=== PATIENT | female | born 1950 | race Caucasian/White ===

== ENCOUNTER → 2016-12-16 | Outpatient (CLI) | payer BC ==
[2016-12-16 10:13] LABS: Basophils # (A) 0.1 k/uL (0-0.2); Basophils % (A) 1 %; CH 29.8; CHCM 32.3; Eosinophils # (A) 0.2 k/uL (0-0.7); Eosinophils % (A) 2 %; HCT 41.7 % (34.0-46.0); HDW 2.24; HGB 13.7 gm/dL (11.4-16.0); Luc # (Auto) 0.16; Luc % (Auto) 3; Lymphocytes # (A) 1.4 k/uL (1.0-4.8); Lymphocytes % (A) 22 %; MCH 30.4 pg (25.0-35.0); MCHC 32.8 g/dL (31.0-37.0); MCV 92.6 fL (80.0-100.0); Mean Platelet Volume 7.6; Monocytes # (A) 0.4 k/uL (0-1.0); Monocytes % (A) 6 %; Neutrophils # (A) 4.2 k/uL (1.3-7.7); Neutrophils % (A) 66 %; RDW 13.2 % (11.5-15.5); WBC 6.4 k/uL (3.8-10.6); WBC (Perox) 6.43
[2016-12-16 10:41] LABS: ALT 37 U/L (9-52); AST 21 U/L (14-36); Alkaline Phosphatase 60 U/L (38-126); Anion Gap 9 mmol/L; Bilirubin, Delta 0.1 mg/dL (0.0-0.2); Blood Urea Nitrogen 14 mg/dL (7-17); Carbon Dioxide 28 mmol/L (22-30); Chloride 99 mmol/L (98-107); Cholesterol 171 mg/dL (<200); Glucose 84 mg/dL (74-99); HDL Cholesterol 64 mg/dL (40-60); Non-African American GFR(MDRD) >60 (>60 ml/min/1.73 sqM); Potassium 3.9 mmol/L (3.5-5.1); Sodium 136 mmol/L (137-145); Total Bilirubin 0.5 mg/dL (0.2-1.3); Total Protein 6.4 g/dL (6.3-8.2)
[2016-12-16 13:52] LABS: Hemoglobin A1C 5.5 % (4.2-6.1)
== END | disposition home or self-care (01) ==
LOC: LABWHC1 09:23
PROVIDERS: ATTEND Internal Medicine
DX: E03.9 Hypothyroidism, unspecified (principal); N95.1 Menopausal and female climacteric states; R73.09 Other abnormal glucose; E55.9 Vitamin D deficiency, unspecified; R63.5 Abnormal weight gain; R53.83 Other fatigue
CPT/HCPCS: 36415; 80051; 80061; 80076; 82306; 82565; 82947; 83036; 83525; 84520; 85025

== ENCOUNTER → 2017-01-25 | Outpatient (CLI) | payer BC | END | disposition home or self-care (01) | LOC: LABWHC1 14:45 | PROVIDERS: ATTEND Internal Medicine | DX: N95.1 Menopausal and female climacteric states (principal) | CPT/HCPCS: 36415; 84140 ==

== ENCOUNTER → 2017-03-06 | Outpatient (CLI) | payer BC | END | disposition home or self-care (01) | LOC: LABWHC1 15:40 | PROVIDERS: ATTEND Internal Medicine | DX: N95.1 Menopausal and female climacteric states (principal) | CPT/HCPCS: 36415; 84140 ==

== ENCOUNTER → 2018-01-18 | Outpatient (CLI) | payer BC ==
--- NOTE | 2018-01-21 12:19 | MM ---
Reason for exam: screening (asymptomatic). Last mammogram was performed 1 year and 1 month ago. History: Patient is postmenopausal. Family history of breast cancer in maternal cousin at age 30. Benign stereotactic core biopsy of the left breast, July 30, 2001. Excisional biopsy of the left breast. Took estrogen for 15 years beginning at age 47. Took progesterone for 15 years beginning at age 47. Physical Findings: A clinical breast exam by your physician is recommended on an annual basis and results should be correlated with mammographic findings. MG 3D Screening Mammo W/Cad Bilateral CC and MLO view(s) were taken. Prior study comparison: January 01, 2017, bilateral MG 3d screening mammo w/cad. December 13, 2015, bilateral MG diagnostic mammo w CAD [facility]. There are scattered fibroglandular densities. Previous mammotome biopsy in the left breast. There is chronic nodularity in the right breast. No significant changes when compared with prior studies. ASSESSMENT: Benign, BI-RAD 2 RECOMMENDATION: Routine screening mammogram of both breasts in 1 year.
== END | disposition home or self-care (01) ==
LOC: RADMAMWWP 01-14 16:09
PROVIDERS: ATTEND Internal Medicine Geriatric Medicine
DX: Z12.31 Encounter for screening mammogram for malignant neoplasm of breast (principal)
CPT/HCPCS: 77063; 77067

== ENCOUNTER → 2018-02-21 | Outpatient (CLI) | payer BC ==
--- NOTE | 2018-02-22 08:45 | BD ---
EXAMINATION TYPE: Axial Bone Density DATE OF EXAM: 02/21/2018 CLINICAL HISTORY: 59-year-old female osteoporosis without current pathologic fracture Height: 66 inches Weight: 207 FRAX RISK QUESTIONS: Alcohol (3 or more units per day): no Family History (Parent hip fracture): no Glucocorticoids (More than 3mos): not now,about 6 years ago (Ex: prednisone, prednisolone, methylprednisolone, dexamethasone, and hydrocortisone). History of Fracture in Adulthood: yes, ankle about 1987 Secondary Osteoporosis: 1. Type 1 Diabetes: no 2. Hyperthyroidism: no 3. Menopause before 45: no 4. Malnutrition: no 5. Chronic liver disease: no Rheumatoid Arthritis: no Current Tobacco Use: no RISK FACTORS HISTORY OF: Family History of Osteoporosis: yes Active: yes Diet low in dairy products/other sources of calcium: yes, dairy sensitive Postmenopausal woman: yes Take estrogen and/or progesterone medications: not now How long: about 15 years Lost more than 2 inches in height since high school: yes Frequent falls: no Poor Health: somewhat Hyperparathyroidism: no Adrenal Insufficiency: yes MEDICATIONS: Prednisone or other steroids: not now How Long: ...not regularly for at least 6 years Thyroid Medications: yes Which medication: Levothyroxine & Armor How Long: since about age 49 Osteoporosis Medications: no Additional Medications: calcium, D3, blood pressure meds Additional History: MS & fibromyalgia, old back injuries (no fractures that patient is aware of) EXAM MEASUREMENTS: Bone mineral densitometry was performed using the [employer] System. Bone mineral density as measured about the Lumbar spine is: ----- L1-L4(G/cm2): 1.437 T Score Values are as follows: ----- L2: 1.2 ----- L3: 2.6 ----- L4: 2.3 ----- L1-L4: 2.1 Bone mineral density has: Decreased -3.6% since study of: 12/11/2011 Bone mineral density about the R hip (g/cm2): 0.994 Bone mineral density about the L hip (g/cm2): 0.984 T Score values are as follows: -----R Neck: -0.3 -----L Neck: -0.4 -----R Total: 0.3 -----L Total: 0.2 Bone mineral density has: Decreased -3.3% since study of: 12/11/2011 IMPRESSION: Normal (Values between +1 and -1 indicate normal bone mass). Consider repeating this study in 5 year s or sooner if there is some new clinical indication. NOTE: T-SCORE=SD OF THE YOUNG ADULT MEAN.
== END | disposition home or self-care (01) ==
LOC: RADBDWWP 10:20
PROVIDERS: ATTEND Internal Medicine Geriatric Medicine
DX: M81.0 Age-related osteoporosis without current pathological fracture (principal)
CPT/HCPCS: 77080

== ENCOUNTER → 2018-11-08 | Outpatient (CLI) | payer BC | END | disposition home or self-care (01) | LOC: LABWHC1 15:38 | PROVIDERS: ATTEND Internal Medicine | DX: E03.9 Hypothyroidism, unspecified (principal) | CPT/HCPCS: 36415; 84439; 84443; 84481 ==

== ENCOUNTER → 2019-01-10 | Outpatient (CLI) | payer BC ==
--- NOTE | 2019-01-13 08:15 | MM ---
Reason for exam: screening (asymptomatic). Last mammogram was performed 1 year ago. History: Patient is postmenopausal. Family history of breast cancer in maternal cousin at age 30. Benign stereotactic core biopsy of the left breast, July 30, 2001. Excisional biopsy of the left breast. Took estrogen for 15 years beginning at age 47. Took progesterone for 15 years beginning at age 47. Physical Findings: A clinical breast exam by your physician is recommended on an annual basis and results should be correlated with mammographic findings. MG 3D Screening Mammo W/Cad Bilateral CC and MLO view(s) were taken. Prior study comparison: January 18, 2018, bilateral MG 3d screening mammo w/cad. January 01, 2017, bilateral MG 3d screening mammo w/cad. There are scattered fibroglandular densities. Previous mammotome biopsy in the left breast. There is chronic nodularity in the right breast. No significant changes when compared with prior studies. ASSESSMENT: Benign, BI-RAD 2 RECOMMENDATION: Routine screening mammogram of both breasts in 1 year.
== END | disposition home or self-care (01) ==
LOC: RADMAMWWP 08:22
PROVIDERS: ATTEND Internal Medicine Geriatric Medicine
DX: Z12.31 Encounter for screening mammogram for malignant neoplasm of breast (principal)
CPT/HCPCS: 77063; 77067

== ENCOUNTER → 2019-04-03 | Outpatient (CLI) | payer BC ==
--- NOTE | 2019-04-03 09:21 | US ---
EXAMINATION TYPE: US thyroid st tissue head/neck DATE OF EXAM: 04/03/2019 COMPARISON: NONE CLINICAL HISTORY: K11.8 Right Parotid Nodule. TECHNIQUE/FINDINGS: Targeted ultrasound was performed of the patient's palpable abnormality in graysc josiah and color. The contralateral parotid gland was also imaged for comparison. At patient palpable in right parotid there is a probable cyst measuring 0.8 x 0.9 x 0.8cm. Subcentimeter lymph nodes also noted bilaterally. All of these are avascular and anechoic with increased through transmission. IMPRESSION: Bilateral cystic parotid gland lesions. Differential includes Warthin's tumor, Sjogren syndrome, slig ht calyceal, or lymphoepithelial neoplasm.
== END | disposition home or self-care (01) ==
LOC: RADUSWWP 06:56
PROVIDERS: ATTEND Otolaryngology
DX: K11.6 Mucocele of salivary gland (principal)
CPT/HCPCS: 76536

== ENCOUNTER 2019-04-28 09:55 | Day surgery (SDC) | payer BC ==
[2019-04-28 11:50] VITALS: RESP 18; TEMP 98.3
[2019-04-28 11:51] VITALS: BP 124/70; PULSE 78
--- NOTE | 2019-04-28 13:03 | US ---
ULTRASOUND GUIDED FNA AND CORE BIOPSY RIGHT PAROTID MASS: CLINICAL HISTORY: Right parotid mass FINDINGS: The procedure was explained to the patient. The risks, complications, benefits and alternatives were discussed and any questions were answered. Informed consent was obtained. Patient was placed supin e on the ultrasound table and prepped and draped in the usual sterile fashion. Utilizing a 25 gauge needle, 2 FNA passes and 2 core biopsies were made into the requested mass. Patient was stable throughout the procedure. Pathology is pending. All elements of maximal barrier technique were utilized. IMPRESSION: 1. Successful ultrasound guided FNA and core biopsy right parotid mass.
== END 2019-04-28 11:45 | disposition home or self-care (01) ==
LOC: RADPROMAIN 09:55
PROVIDERS: ATTEND Otolaryngology
DX: D49.0 Neoplasm of unspecified behavior of digestive system (principal); I10 Essential (primary) hypertension; G35 Multiple sclerosis; F32.9 Major depressive disorder, single episode, unspecified; M79.7 Fibromyalgia; E03.9 Hypothyroidism, unspecified; E66.9 Obesity, unspecified; M19.90 Unspecified osteoarthritis, unspecified site; L71.9 Rosacea, unspecified; E07.9 Disorder of thyroid, unspecified; Z79.890 Hormone replacement therapy; Z79.899 Other long term (current) drug therapy; Z68.32 Body mass index [BMI] 32.0-32.9, adult; Z98.890 Other specified postprocedural states; Z98.49 Cataract extraction status, unspecified eye; Z91.040 Latex allergy status; Z91.011 Allergy to milk products; Z88.8 Allergy status to other drugs, medicaments and biological substances; Z91.018 Allergy to other foods; Z88.1 Allergy status to other antibiotic agents; Z82.49 Family history of ischemic heart disease and other diseases of the circulatory system; Z80.0 Family history of malignant neoplasm of digestive organs; Z82.69 Family history of other diseases of the musculoskeletal system and connective tissue; Z81.8 Family history of other mental and behavioral disorders; Z82.61 Family history of arthritis; Z81.1 Family history of alcohol abuse and dependence; Z83.42 Family history of familial hypercholesterolemia; Z83.79 Family history of other diseases of the digestive system; Z87.891 Personal history of nicotine dependence
CPT/HCPCS: 10005; 42400; 76942; 88173; 88305

== ENCOUNTER → 2019-09-01 | Outpatient (CLI) | payer BC | END | disposition home or self-care (01) | LOC: LABWHC1 13:16 | PROVIDERS: ATTEND Internal Medicine | DX: E03.9 Hypothyroidism, unspecified (principal); N95.1 Menopausal and female climacteric states; E55.9 Vitamin D deficiency, unspecified | CPT/HCPCS: 36415; 82306; 83735; 84140 ==

== ENCOUNTER → 2020-01-12 | Outpatient (CLI) | payer BC ==
--- NOTE | 2020-01-13 11:51 | MM ---
Reason for exam: clinical finding. Last mammogram was performed 1 year ago. History: Patient is postmenopausal. Family history of breast cancer in maternal cousin at age 30. Benign stereotactic core biopsy of the left breast, July 30, 2001. Excisional biopsy of the left breast. Taking estrogen for 15 years beginning at age 47. Taking progesterone for 15 years beginning at age 47. Taking other hormone. Physical Findings: Nurse did not find any significant physical abnormalities on exam. MG 3D Diag Mammo W/Cad [facility] Bilateral CC and MLO view(s) were taken. Prior study comparison: January 10, 2019, bilateral MG 3d screening mammo w/cad. January 18, 2018, bilateral MG 3d screening mammo w/cad. There are scattered fibroglandular densities. Previous mammotome biopsy in the left breast. These results were verbally communicated with the patient and result sheet given to the patient on 01/12/20. ASSESSMENT: Benign, BI-RAD 2 RECOMMENDATION: Routine screening mammogram of both breasts in 1 year. Manage on a clinical basis with regard to right breast pain.
== END | disposition home or self-care (01) ==
LOC: RADMAMWWP 13:33
PROVIDERS: ATTEND Internal Medicine Geriatric Medicine
DX: N64.4 Mastodynia (principal)
CPT/HCPCS: 77062; 77066

== ENCOUNTER 2022-01-10 05:49 | Emergency (ER) | payer BC ==
--- NOTE | 2022-01-10 06:51 | XR ---
EXAMINATION TYPE: XR humerus LT DATE OF EXAM: 01/10/2022 COMPARISON: NONE HISTORY: Fall. Pain TECHNIQUE: 2 views FINDINGS: I see no fracture nor dislocation. Glenohumeral joint is intact. No pathologic calcificatio n. IMPRESSION: Negative left humerus exam. No fracture.
--- NOTE | 2022-01-10 07:58 | ED ---
Upper Extremity HPI - General Chief Complaint: Extremity Injury, Upper Stated Complaint: Fall, LT shoulder injury Time Seen by Provider: 01/10/22 07:29 Source: patient, RN notes reviewed Mode of arrival: ambulatory Limitations: no limitations - History of Present Illness Initial Comments: This is a 71-year-old female who presents to the emergency department for left arm pain. States that she was walking on the sidewalk yesterday when she slipped and fell on wet leaves. She landed on her left arm. Pain is primarily in the left shoulder and upper arm. She is able to move it, but states that it is very painful. She took 800 mg of ibuprofen, however she is not sure if this was effective. She is requesting an MRI, but states that she is able to get an appointment with Dr. Muñoz, her PCP, this afternoon and Dr. Miranda, orthopedics, in 2 days. She did not hit her head and denies any loss of consciousness. Denies any fevers, chills, sore throat, cough, dyspnea, chest pain, palpitations, abdominal pain, nausea, vomiting, diarrhea, back pain, or headaches. MD Complaint: Injury to:: left, shoulder, arm Onset/Timin -: days(s) Context: fall Treatments Prior to Arrival: NSAIDS - Related Data Home Medications Medication Instructions Recorded Confirmed ALPRAZolam [Xanax] 0.25 mg PO DAILY PRN 04/15/19 04/28/19 Fluticasone Propionate [Flovent 50 mcg INHALATION DAILY 04/15/19 04/28/19 Diskus] Levothyroxine Sodium 150 mcg PO DAILY 04/15/19 04/28/19 Potassium Chloride [Klor-Con 20] 20 meq PO DAILY 04/15/19 04/28/19 Prasterone (Dhea) [Dhea] 25 mg PO DAILY 04/15/19 04/28/19 Thyroid,Pork [[place] Thyroid] 15 mg PO DAILY 04/15/19 04/28/19 Thyroid,Pork [[place] Thyroid] 60 mg PO DAILY 04/15/19 04/28/19 buPROPion HCL [buPROPion HCL SR] 150 mg PO DAILY 04/15/19 04/28/19 hydroCHLOROthiazide [Hydrodiuril] 25 mg PO BID 04/15/19 04/28/19 lisinopriL [Prinivil] 5 mg PO DAILY 04/15/19 04/28/19 Previous Rx's Medication Instructions Recorded Ibuprofen [Motrin] 800 mg PO Q8H PRN #20 tab 01/10/22 Ketorolac [Toradol] 10 mg PO Q6HR PRN #12 tab 01/10/22 Lidocaine 5% Patch [Lidoderm] 1 each TP DIRECTED PRN #30 patch 01/10/22 Allergies Allergy/AdvReac Type Severity Reaction Status Date / Time latex Allergy Rash/Hives Verified 01/10/22 05:57 milk Allergy Unknown Verified 01/10/22 05:57 minocycline [From Minocin] Allergy Rash/Hives Verified 01/10/22 05:57 propoxyphene [From Darvon] Allergy Unknown Verified 01/10/22 05:57 soy Allergy Unknown Verified 01/10/22 05:57 spironolactone Allergy Unknown Verified 01/10/22 05:57 wheat Allergy Unknown Verified 01/10/22 05:57 Review of Systems ROS Statement: Those systems with pertinent positive or pertinent negative responses have been documented in the HPI. ROS Other: All systems not noted in ROS Statement are negative. Past Medical History Past Medical History: Fibromyalgia, Hypertension, Musculoskeletal Disorder, Osteoarthritis (OA), Skin Disorder, Thyroid Disorder Additional Past Medical History / Comment(s): MS History of Any Multi-Drug Resistant Organisms: None Reported Past Surgical History: Breast Surgery, Cholecystectomy Additional Past Surgical History / Comment(s): ankle surgery, breast biopsy, cataract surgery, aspiration rt parotid gland FNA - done in office - non diagno stic. Past Anesthesia/Blood Transfusion Reactions: No Reported Reaction Past Psychological History: Anxiety, Depression Smoking Status: Never smoker Past Alcohol Use History: None Reported Past Drug Use History: None Reported - Past Family History Father Family Medical History: Cancer Additional Family Medical History / Comment(s): colon General Exam Limitations: no limitations General appearance: alert, in no apparent distress Head exam: Present: atraumatic, normocephalic, normal inspection Respiratory exam: Present: normal lung sounds bilaterally. Absent: respiratory distress, wheezes, rales, rhonchi, stridor Cardiovascular Exam: Present: regular rate, normal rhythm, normal heart sounds. Absent: systolic murmur, diastolic murmur, rubs, gallop, clicks Extremities exam: Present: other (Limited active range of motion of the left arm and shoulder secondary to pain. Support Worker strength is 5 out of 5 bilaterally and equally. 2+ radial pulses bilaterally and capillary refill less than 1 second. No tenderness to palpation over the left AC joint.) Neurological exam: Present: alert, oriented X3, CN II-XII intact Psychiatric exam: Present: normal affect, normal mood Skin exam: Present: warm, dry, intact, normal color. Absent: rash Course Vital Signs 01/10/22 01/10/22 05:58 07:58 Temperature 98 F 98.3 F Pulse Rate 84 78 Respiratory 16 18 Rate Blood Pressure 164/78 122/78 O2 Sat by Pulse 98 98 Oximetry Medical Decision Making - Medical Decision Making This is a 71-year-old female who presents to the emergency department for a left arm injury. X-rays revealed no acute fractures or dislocations. Patient was given an arm sling and prescription for ibuprofen, Toradol, and lidocaine patches. She is instructed to take either the ibuprofen or Toradol for the pain and to alternate with Tylenol. She must avoid taking ibuprofen and Toradol together. She is also instructed to apply ice for 10-15 minutes every 2-3 hours. She will follow up with Dr. Muñoz this afternoon to discuss an MRI and with Dr. Miranda, orthopedics, in 2 days. Return precautions reviewed in depth, the patient is instructed to return to the emergency department with any new, worsening, or concerning symptoms. Patient verbalized understanding. This case was discussed in detail with the attending ED physician. Presentation, findings, and treatment plan discussed in detail as well. - Radiology Data Radiology results: report reviewed, image reviewed Disposition Clinical Impression: Injury of left shoulder Disposition: HOME SELF-CARE Instructions (If sedation given, give patient instructions): Shoulder Pain (ED), Shoulder Immobilizer (ED) Additional Instructions: Return to the emergency department with any new, worsening, or concerning symptoms. You can take either the Toradol or ibuprofen for pain, do not take them together. The lidocaine patches can be used for 12 hours in a 24-hour period. Use the arm sling as needed for support. Apply ice for 10-15 minutes every 2-3 hours. Follow up with your primary care provider and orthopedic provider as scheduled this week. Prescriptions: Lidocaine 5% Patch [Lidoderm] 1 each TP DIRECTED PRN #30 patch PRN Reason: Pain Ibuprofen [Motrin] 800 mg PO Q8H PRN #20 tab PRN Reason: Pain Ketorolac [Toradol] 10 mg PO Q6HR PRN #12 tab PRN Reason: Pain Is patient prescribed a controlled substance at d/c from ED?: No Referrals: Jeffery Muñoz MD [Primary Care Provider] - 1-2 days Billy Miranda MD [STAFF PHYSICIAN] - 1-2 days
[2022-01-10 08:02] VITALS: BP 122/78; PULSE 78; RESP 18; TEMP 98.3
== END 2022-01-10 08:02 | disposition home or self-care (01) ==
LOC: EC 05:49
DX: S49.92XA Unspecified injury of left shoulder and upper arm, initial encounter (principal); I10 Essential (primary) hypertension; M19.90 Unspecified osteoarthritis, unspecified site; E07.9 Disorder of thyroid, unspecified; Z79.84 Long term (current) use of oral hypoglycemic drugs; Z79.890 Hormone replacement therapy; Z91.040 Latex allergy status; Z91.011 Allergy to milk products; Z88.1 Allergy status to other antibiotic agents; Z88.5 Allergy status to narcotic agent; Z91.018 Allergy to other foods; Z88.3 Allergy status to other anti-infective agents; W01.0XXA Fall on same level from slipping, tripping and stumbling without subsequent striking against object, initial encounter; Y93.01 Activity, walking, marching and hiking
CPT/HCPCS: 99283

== ENCOUNTER → 2022-01-30 | Outpatient (CLI) | payer BC ==
[2022-01-30 14:21] LABS: Basophils # (A) 0.08 X 10*3/uL (0.00-0.10); Basophils % (A) 1.2 %; Eosinophils # (A) 0.09 X 10*3/uL (0.04-0.35); Eosinophils % (A) 1.4 %; HCT 40.1 % (37.2-46.3); HGB 13.6 g/dL (12.0-15.0); Immature Grans, Automated 0.3 %; Lymphocytes # (A) 1.39 X 10*3/uL (0.90-5.00); Lymphocytes % (A) 21.7 %; MCH 30.2 pg (27.0-32.0); MCHC 33.9 g/dL (32.0-37.0); MCV 89.1 fL (80.0-97.0); Mean Platelet Volume 11.1 fL (9.5-12.2); Monocytes # (A) 0.47 X 10*3/uL (0.20-1.00); Monocytes % (A) 7.3 %; NRBC Per 100 WBC 0 /100 WBCS (0.0-0.0); Neutrophils # (A) 4.36 X 10*3/uL (1.80-7.70); Neutrophils % (A) 68.1 %; Platelet Count 318 X 10*3/uL (140-440); WBC 6.41 X 10*3/uL (4.50-10.00)
[2022-01-30 14:37] LABS: Thyroid Peroxidase Antibodies <9.0 U/mL (0.0-33.0)
[2022-01-30 14:47] LABS: Ferritin 66.3 ng/mL (10.0-291.0); LDL Cholesterol,Calculated 118.1 mg/dL (0.0-131.0); VLDL Calculation 11.14 mg/dL (5.00-40.00)
[2022-01-30 14:48] LABS: ALT 29 U/L (8-44); AST 23 U/L (13-35); African American GFR (CKD) 74.8 (60.0-200.0); Albumin 4.4 g/dL (3.8-4.9); Albumin/Globulin Ratio 1.81 (1.60-3.17); Alkaline Phosphatase 60 U/L (41-126); BUN/Creat Ratio 10.83 Ratio (12.00-20.00); Blood Urea Nitrogen 9.7 mg/dL (9.0-27.0); Calcium 9.5 mg/dL (8.7-10.3); Carbon Dioxide 28.3 mmol/L (20.0-27.5); Chloride 98 mmol/L (96-109); Globulin 2.4 g/dL (1.6-3.3); Glucose 100 mg/dL (70-110); Non-African American GFR(CKD) 64.6 (60.0-200.0); Potassium 3.7 mmol/L (3.5-5.5); Sodium 137 mmol/L (135-145); Total Protein 6.8 g/dL (6.2-8.2)
[2022-01-30 18:09] LABS: Insulin Level 7.5 mIU/mL (3.0-25.0)
[2022-01-30 19:00] LABS: C Reactive Protein, High Sens 0.634 mg/L (0.000-3.000)
== END | disposition home or self-care (01) ==
LOC: LABWHC1 09:35
PROVIDERS: ATTEND Obstetrics & Gynecology Obstetrics
DX: N95.1 Menopausal and female climacteric states (principal); E03.9 Hypothyroidism, unspecified; R53.82 Chronic fatigue, unspecified; E34.9 Endocrine disorder, unspecified; E78.00 Pure hypercholesterolemia, unspecified; R73.09 Other abnormal glucose; R94.6 Abnormal results of thyroid function studies; E55.9 Vitamin D deficiency, unspecified; E72.11 Homocystinuria; D64.9 Anemia, unspecified; D51.9 Vitamin B12 deficiency anemia, unspecified; E87.8 Other disorders of electrolyte and fluid balance, not elsewhere classified
CPT/HCPCS: 36415; 80053; 80061; 82306; 82607; 82728; 83036; 83090; 83525; 84140; 84432; 84439; 84443; 84481; 84482; 85025; 86141; 86376; 86800

== ENCOUNTER → 2022-03-08 | Outpatient (CLI) | payer BC ==
--- NOTE | 2022-03-08 15:44 | BD ---
EXAMINATION TYPE: Axial Bone Density DATE OF EXAM: 03/08/2022 COMPARISON: NONE CLINICAL HISTORY: 71 years year old Female. ICD-10 CODE: M810 OSTEOPOROSIS Height: 5 FT 5 1/ 4IN Weight: 222 FRAX RISK QUESTIONS: Alcohol (3 or more units per day): NO Family History (Parent hip fracture): NO Glucocorticoids (More than 3mos): YES (Ex: prednisone, prednisolone, methylprednisolone, dexamethasone, and hydrocortisone). History of Fracture in Adulthood: YES Secondary Osteoporosis: 1. Type 1 Diabetes: NO 2. Hyperthyroidism: NO 3. Menopause before 45: NO 4. Malnutrition: NO 5. Chronic liver disease: NO Rheumatoid Arthritis: NO Current Tobacco Use: NO RISK FACTORS HISTORY OF: Surgery to Spine/Hip(right/left)/Wrist (right/left): NO Family History of Osteoporosis: YES Active: YES Diet low in dairy products/other sources of calcium: NO Postmenopausal woman: YES Take estrogen and/or progesterone medications: CURRENTLY USES How lon YEARS Lost more than 2 inches in height since high school: YES Frequent falls: NO Poor Health: GOOD Hyperparathyroidism: NO Adrenal Insufficiency: YES MEDICATIONS: Additional Medications: CORTEF, CALCIUM, BLOOD PRESSURE MEDS, THYROID MEDS X3, LISINOPRIL, [place] E, PROGESTERONE, TESTOSTERONE, DHEA, ESTROGEN, WELLBUTRIN, Additional History: EXAM MEASUREMENTS: Bone mineral densitometry was performed using the [employer] System. Bone mineral density as measured about the Lumbar spine is: ----- L1-L4(G/cm2): 1.508 T Score Values are as follows: ----- L1: 1.7 ----- L2: 2.3 ----- L3: 2.6 ----- L4: 4.0 ----- L1-L4: 2.7 Bone mineral density has: INCREASED 3.6 % since study of: 2011 Bone mineral density about the R hip (g/cm2): 0.962 Bone mineral density about the L hip (g/cm2): 0.982 T Score values are as follows: -----R Neck: -0.5 -----L Neck: -0.4 -----R Total: 0.4 -----L Total: 0.3 Bone mineral density has: DECREASED -2.2 % since study of: 2012 FRAX%s: The graph provided illustrates a 18.4 % chance for a major osteoporotic fx and a 1.8 % chance for the hips probability for fx in 10 years time. IMPRESSION: Normal (Values between +1 and -1 indicate normal bone mass). Consider repeating this study in 5 year s or sooner if there is some new clinical indication. NOTE: T-SCORE=SD OF THE YOUNG ADULT MEAN.
--- NOTE | 2022-03-08 18:38 | MM ---
Reason for Exam: Screening (asymptomatic). Last mammogram was performed 2 year(s) and 2 month(s) ago. Patient History: Menarche at age 12. First Full-Term at age 24. Postmenopausal. Currently using Estrogen, beginning at age 47 for 15 years. Currently using Progesterone, beginning at age 47 for 15 years. Excisional Biopsy on the Left side. 07/30/2001, Benign Stereotactic Core Biopsy on the left side. Maternal cousin had breast cancer, age 30. Risk Values: Celeste 5 year model risk: 2.9%. NCI Lifetime model risk: 7.5%. Prior Study Comparison: 01/18/2018 Bilateral Screening Mammogram, [facility]. 01/10/2019 Bilateral Screening Mammogram, [facility]. 01/12/2020 Bilateral Diagnostic Mammogram, [facility]. Tissue Density: There are scattered fibroglandular densities. Findings: Analyzed By CAD. Pattern is symmetrical and stable. A biopsy clip is within the left breast. No significant interval changes are evident. Stable focal asymmetries are within the right breast No suspicious groups of microcalcifications, spiculated or lobular masses, architectural distortion or other secondary signs of malignancy are mammographically apparent. Overall Assessment: Benign, BI-RAD 2 Management: Screening Mammogram of both breasts in 1 year. A negative mammogram report should not preclude additional follow up of suspicious palpable abnormalities. Patient should continue monthly self breast exam. A clinical breast exam by your physician is recommended on an annual basis and results should be correlated with mammographic findings. Electronically signed and approved by: Dale Ovalles D.O. Radiologis
== END | disposition home or self-care (01) ==
LOC: RADMAMWWP 08:52
PROVIDERS: ATTEND Internal Medicine Geriatric Medicine
DX: Z12.31 Encounter for screening mammogram for malignant neoplasm of breast (principal); Z78.0 Asymptomatic menopausal state; Z80.3 Family history of malignant neoplasm of breast
CPT/HCPCS: 77063; 77067; 77080

== ENCOUNTER → 2022-08-11 | Outpatient (CLI) | payer BC ==
[2022-08-11 16:21] LABS: C Reactive Protein, High Sens 2.48 mg/L (0.000-3.000); Ferritin 49.2 ng/mL (10.0-291.0)
[2022-08-11 16:23] LABS: Thyroid Peroxidase Antibodies <9.0 U/mL (0.0-33.0)
== END | disposition home or self-care (01) ==
LOC: LABWHC1 08:43
PROVIDERS: ATTEND Obstetrics & Gynecology Obstetrics
DX: N95.1 Menopausal and female climacteric states (principal); E87.8 Other disorders of electrolyte and fluid balance, not elsewhere classified; E78.2 Mixed hyperlipidemia; D64.9 Anemia, unspecified; E06.3 Autoimmune thyroiditis; E72.11 Homocystinuria; R73.09 Other abnormal glucose; R94.6 Abnormal results of thyroid function studies
CPT/HCPCS: 36415; 82728; 83090; 83525; 84140; 84432; 84481; 86141; 86376

== ENCOUNTER → 2023-01-19 | Outpatient (CLI) | payer BC ==
--- NOTE | 2023-01-22 16:18 | MM ---
Reason for Exam: Screening (asymptomatic). Last screening mammogram was performed 11 month(s) ago. Patient History: Menarche at age 12. First Full-Term at age 24. Postmenopausal. Currently using Estrogen, beginning at age 47 for 15 years. Currently using Progesterone, beginning at age 47 for 15 years. Excisional Biopsy on the Left side. 07/30/2001, Benign Stereotactic Core Biopsy on the left side. Maternal cousin had breast cancer, age 30. Risk Values: Celeste 5 year model risk: 2.9%. NCI Lifetime model risk: 7.1%. Prior Study Comparison: 01/10/2019 Bilateral Screening Mammogram, [facility]. 01/12/2020 Bilateral Diagnostic Mammogram, [facility]. 03/08/2022 Bilateral MG 3D screening mammo w/cad, [facility]. Tissue Density: There are scattered fibroglandular densities. Findings: Analyzed By CAD. There appears symmetrical and stable. No significant interval changes. Biopsy clip is within the left breast. Chronic nodularity is within the right breast. No suspicious groups of microcalcifications, spiculated or lobular masses, architectural distortion or other secondary signs of malignancy are mammographically apparent. Overall Assessment: Benign, BI-RAD 2 Management: Screening Mammogram of both breasts in 1 year. A negative mammogram report should not preclude additional follow up of suspicious palpable abnormalities. Patient should continue monthly self breast exam. A clinical breast exam by your physician is recommended on an annual basis and results should be correlated with mammographic findings. Electronically signed and approved by: Dale Ovalles D.O. Radiologis
== END | disposition home or self-care (01) ==
LOC: RADMAMWWP 11:23
PROVIDERS: ATTEND Internal Medicine Geriatric Medicine
DX: Z12.31 Encounter for screening mammogram for malignant neoplasm of breast (principal); Z78.0 Asymptomatic menopausal state; Z80.3 Family history of malignant neoplasm of breast
CPT/HCPCS: 77063; 77067